=== PATIENT | male | born 1965 | race African-American/Black ===

== ENCOUNTER → 2017-05-17 | Outpatient (CLI) | payer OTHER ==
[~2017-05-17] MED LIST: ASPIRIN325 PO; ATORVASTATIN CA40 MG PO; COZAAR 50 MG TA50 M2 PO; CREON DR 36,001 EACH PO; HYDROCHLOROTHIA25 M2 PO; ONDANSETRON HCL4 M2 PO; TOPROL XL25 MG PO
== END ==
LOC: CAT 11:20
DX: Z13.6 Encounter for screening for cardiovascular disorders (principal)